=== PATIENT | female | born 1970 | race Caucasian/White ===

== ENCOUNTER → 2018-02-10 | Outpatient (CLI) | payer OTHER ==
--- NOTE | 2018-02-10 13:48 | PCVCIMAG ---
APPROVED REPORT Study performed: 02/10/2018 13:06:08 EXAM: Comprehensive 2D, Doppler, and color-flow Echocardiogram Patient Location: Echo lab Status: routine BSA: 2.17 HR: 83 bpmBP: 130/100 mmHg Rhythm: NSR Other Information Study Quality: Good Risk Factors: Cardiac Risk Factors: HTN Indications Chest Pain Hypertension/HDD 2D Dimensions IVSd: 14.74 (7-11mm)LVOT Diam: 19.64 (18-24mm) LVDd: 40.52 mm PWd: 14.71 (7-11mm)Ascending Ao: 33.01 (22-36mm) LVDs: 24.17 (25-40mm) Left Atrium: 31.23 (27-40mm) Aortic Root: 32.55 mm LV Single Plane 4CH: 69.70 % LV Single Plane 2CH: 55.36 % Biplane EF: 63.1 % Volumes Left Atrial Volume (Systole) Single Plane 4CH: 50.62 mLSingle Plane 2CH: 34.54 mL LA ESV Index: 20.00 mL/m2 Aortic Valve AoV Peak Kareem.: 1.58 m/s AO Peak Gr.: 10.01 mmHgLVOT Max P.54 mmHg LVOT Max V: 1.46 m/s GALINA Vmax: 2.80 cm2 Mitral Valve E/A Ratio: 1.0 MV Decel. Time: 247.09 ms MV E Max Kareem.: 0.78 m/s MV A Kareem.: 0.77 m/s IVRT: 110.73 ms TDI E/Lateral E': 7.80E/Medial E': 9.75 Medial E' Kareem.: 0.08 m/s Lateral E' Kareem.: 0.10 m/s Pulmonary Valve PV Peak Gr.: 2.70 mmHg Pulmonary Vein P Vein S: 0.64 m/sP Vein A: 0.41 m/s P Vein D: 0.36 m/sP Vein A Dur.: 90.0 msec P Vein S/D Ratio: 1.78 Tricuspid Valve TR Peak Kareem.: 2.26 m/s TR Peak Gr.: 20.50 mmHg Left Ventricle The left ventricle is normal size. There is normal LV segmental wall motion. Mild to moderate concentric left ventricular hypertrophy. Left ventricular systolic function is normal. The left ventricular ejection fraction is within the normal range. LVEF is 60%. The left ventricular diastolic function is normal. Right Ventricle The right ventricle is normal size. The right ventricular systolic function is normal. Atria The left atrium size is normal. The right atrium size is normal. Aortic Valve The aortic valve is normal in structure. No aortic regurgitation is present. There is no aortic valvular stenosis. Mitral Valve The mitral valve is normal in structure. Trace mitral regurgitation. No evidence of mitral valve stenosis. Tricuspid Valve The tricuspid valve is normal in structure. Trace tricuspid regurgitation. Pulmonary artery pressure is 28mmHg., Pulmonic Valve The pulmonary valve is normal in structure. There is no pulmonic valvular regurgitation. Great Vessels The aortic root is normal in size. IVC is normal in size and collapses >50% with inspiration. Pericardium There is no pericardial effusion. <Conclusion> The left ventricle is normal size. Left ventricular systolic function is normal. The left ventricular ejection fraction is within the normal range. The aortic valve is normal in structure. The mitral valve is normal in structure. Trace mitral regurgitation. The tricuspid valve is normal in structure. Trace tricuspid regurgitation. Pulmonary artery pressure is 28mmHg., There is no pericardial effusion.
== END | disposition home or self-care (01) ==
LOC: PCVCIMAG 13:04
PROVIDERS: ATTEND Internal Medicine
DX: I10 Essential (primary) hypertension (principal); R07.89 Other chest pain; R60.0 Localized edema
CPT/HCPCS: 93306